=== PATIENT | male | born 1980 | race Caucasian/White ===

== ENCOUNTER 2018-10-15 20:43 | Emergency (ER) | payer SELFPAY ==
[2018-10-15] MEDS ORDERED: OXYCODONE-ACETAMINOPHEN 5-325 MG TABLET PO ONE (21:10)
[2018-10-15] MEDS ORDERED: TETRACAINE HCL 0.5% OPH SOLN 4 ML OD ONE (21:10)
--- NOTE | 2018-10-15 21:14 | ER Document Report ---
ED Medical Screen (RME) - General Chief Complaint: Foreign Body in Eye Stated Complaint: FOREIGN BODY IN EYE Time Seen by Provider: 10/15/18 21:09 Notes: 38-year-old male coming in today with complaints of red teary painful right eye. Few days ago felt like a rock struck it. Has a foreign body sensation in that eye that is progressively gotten worse. He does not wear contact lenses or use glasses. No chronic medical problems. I have treated and performed a rapid initial assessment of this patient. A comprehensive ED assessment and evaluation of the patient, analysis of test results and completion of medical decision making process will be conducted by additional ED providers. PHYSICAL EXAMINATION: GENERAL: Well-appearing, well-nourished and in no acute distress. A&Ox4. Answers questions appropriately. HEENT: Patient is unable to open his right eye completely for exam. Conjunctivae is 2+ injected in the right eye. Copious tears running out of the right eye. TRAVEL OUTSIDE OF THE [place] IN LAST 30 DAYS: No - Related Data Allergies/Adverse Reactions: No Known Allergies Allergy (Unverified 10/15/18 20:44) Past Medical History - Social History Frequency of alcohol use: None Drug Abuse: None Renal/ Medical History: Denies: Hx Peritoneal Dialysis
[2018-10-15] MEDS ORDERED: ERYTHROMYCIN 0.5% OPH OINT 1 GM UNIT DOSE OD ONE (22:37)
[2018-10-15] MEDS ORDERED: IBUPROFEN 800 MG TABLET PO ONE (22:38)
[2018-10-15] MEDS ORDERED: PROMETHAZINE HCL 25 MG TABLET PO ONE (22:38)
[2018-10-15] MEDS ORDERED: HYDROCODONE/ACETAMINOPHEN 5-325 MG TABLET PO ONE (22:38)
--- NOTE | 2018-10-15 22:41 | ER Document Report ---
ED Foreign Body - General Chief Complaint: Foreign Body in Eye Stated Complaint: FOREIGN BODY IN EYE Time Seen by Provider: 10/15/18 21:09 Primary Care Provider: MELODY CUNHA DO [ACTIVE STAFF] - Follow up tomorrow Notes: 38-year-old male to the emergency department complaining of significant right eye pain. Thinks he got some metal in his eye. Patient works as a manager of construction. Happened shortly prior to arrival. No other issues. Tetanus shot in the last 3 years. TRAVEL OUTSIDE OF THE [place] IN LAST 30 DAYS: No - HPI Location of foreign body: Other - Right eye Onset: Just prior to arrival Quality of pain: Burning Severity: Severe Associated symptoms: None - Related Data Allergies/Adverse Reactions: No Known Allergies Allergy (Unverified 10/15/18 20:44) Past Medical History - General Information source: Patient - Social History Smoking Status: Current Every Day Smoker Frequency of alcohol use: None Drug Abuse: None Lives with: Family Family History: Reviewed & Not Pertinent Patient has suicidal ideation: No Patient has homicidal ideation: No - Medical History Medical History: Negative Renal/ Medical History: Denies: Hx Peritoneal Dialysis Review of Systems - Review of Systems Constitutional: denies: Fever, Malaise, Weakness EENT: See HPI, Eye pain. denies: Nose congestion Cardiovascular: denies: Chest pain, Palpitations, Heart racing Respiratory: denies: Cough, Hurts to breathe, Short of breath, Wheezing Gastrointestinal: denies: Abdominal pain, Diarrhea, Nausea, Vomiting Genitourinary: denies: Burning, Dysuria, Discharge, Flank pain Neurological/Psychological: denies: Confusion, Weakness, Numbness Physical Exam - Vital signs Vitals: Temp Pulse Resp BP Pulse Ox 98.3 F 80 16 141/97 H 97 10/15/18 20:52 10/15/18 20:52 10/15/18 20:52 10/15/18 20:52 10/15/18 20:52 Interpretation: Normal - HEENT Head: Normocephalic Eyes: Other - There is a small metallic foreign body noted at the 9 o'clock position of the iris on the right eye. Positive rust ring. Positive for corneal abrasion around the metallic foreign body. Anterior chamber is normal. There is no cells and flare. Pupils: PERRL Mucous membranes: Normal Pharynx: Normal - Respiratory Respiratory status: No respiratory distress Chest status: Nontender Breath sounds: Normal Chest palpation: Normal - Cardiovascular Rhythm: Regular Heart sounds: Normal auscultation Murmur: No - Skin Skin Temperature: Warm Skin Moisture: Dry Skin Color: Normal Course - Re-evaluation Re-evalutation: 10/16/18 06:45 Procedure note: Corneal foreign body removal: After proper anesthesia was obtained with tetracaine in the right eye a 18-gauge needle was used to remove the foreign body. There remained a rust ring. No bur was available. Patient was evaluated under slit lamp. There was no large foreign body seen under slit lamp but there is a large rust ring as well as a corneal abrasion. Erythromycin ophthalmic ointment was placed in the right eye. Pain medication orally given. - Vital Signs Vital signs: Temp Pulse Resp BP Pulse Ox 98.2 F 67 20 142/99 H 96 10/15/18 23:00 10/15/18 23:00 10/15/18 23:00 10/15/18 23:00 10/15/18 23:00 Discharge - Discharge Clinical Impression: Corneal foreign body Qualifiers: Encounter type: initial encounter Laterality: right Qualified Code(s): T15.01XA - Foreign body in cornea, right eye, initial encounter Condition: Good Disposition: HOME, SELF-CARE Instructions: Corneal Foreign Body ([facility]), Corneal Foreign Body with Rust ([facility]) Prescriptions: Erythromycin Base [Erythromycin Oph 1 Gm Oint Ud] 1 applic OD QID 7 Days #1 tube Hydrocodone/Acetaminophen [[place] 5-325 mg Tabs (6 Tab/ER Disp)] 0 tab PO Q4H PRN #1 dspk PRN Reason: For Pain Ibuprofen [Motrin 800 mg Tablet] 800 mg PO Q8H PRN 10 Days #30 tab PRN Reason: For Pain Scale 3-4 Forms: Return to Work Referrals: MELODY CUNHA DO [ACTIVE STAFF] - Follow up tomorrow Print Language: Icelandic
[2018-10-15] MEDS ORDERED: HYDROCODONE/ACETAMINOPHEN 5-325 MG (6 TAB/ER DISP) PO PRN (22:48)
[2018-10-15 23:09] VITALS: BP 142/99
== END 2018-10-15 23:10 | disposition home or self-care (01) ==
LOC: ER 20:43
PROC: 08C8XZZ Extirpation of Matter from Right Cornea, External Approach (ICD-10-PCS; principal; 2018-10-15)
DX: T15.01XA Foreign body in cornea, right eye, initial encounter (principal); H57.11 Ocular pain, right eye; X58.XXXA Exposure to other specified factors, initial encounter; F17.200 Nicotine dependence, unspecified, uncomplicated
CPT/HCPCS: 99283; 65222; J3490